=== PATIENT | female | born 1945 | race Caucasian/White ===

== ENCOUNTER 2017-01-31 17:02 | Inpatient (IN) | payer MEDICARE, MEDICAID ==
[~2017-01-31] VITALS: Ht 160 cm; Wt 56.7 kg
[2017-01-31] MEDS ORDERED: ACETAMINOPHEN ES 500 MG TABLET ONE (17:27)
[2017-01-31] MEDS ORDERED: IV NS 0.9% 2,000 ML ONE (17:27)
[2017-01-31] MEDS ORDERED: IV SET PRIMARY PUMP SET 1 EA INFUS.SET MC ONE ×3 (17:27→22:23)
[2017-01-31] MEDS ORDERED: IV NS 0.9% 1,000 ML BAG IV ONE ×2 (17:30)
[2017-01-31] MEDS ORDERED: ACETAMINOPHEN ES 500 MG TABLET PO ONE (17:30)
[2017-01-31] MEDS ORDERED: LEVOFLOXACIN 750 MG /D5W 150ML PIGGYBACK IV ONE (17:30)
[2017-01-31] MEDS ORDERED: PIPERACILLIN /TAZOBACTAM 3.375 G in IV D5W 50 ML IV ONE (17:30)
[2017-01-31 17:44] LABS: BASOPHILS # (AUTO) 0.6 /CMM (0.0-0.2); BASOPHILS % (AUTO) 3.4 % (0.0-2.0); DIFF TOTAL % 100 %; EOSINOPHILS # (AUTO) 0.1 /CMM (0.0-0.7); EOSINOPHILS % (AUTO) 0.7 % (0.0-6.0); HEMATOCRIT 35 % (33-45); HEMOGLOBIN 11.8 g/dL (11.5-14.8); LYMPHOCYTES # (AUTO) 2.1 /CMM (0.8-4.8); LYMPHOCYTES % (AUTO) 12.8 % (20.0-44.0); MEAN CORPUSCULAR HEMOGLOBIN 30 PG (26.0-33.0); MEAN CORPUSCULAR HGB CONC 33 g/dl (31.0-36.0); MEAN CORPUSCULAR VOLUME 89 fL (82-100); MONOCYTES # (AUTO) 1.1 /CMM (0.1-1.30); MONOCYTES % (AUTO) 6.8 % (2.0-12.0); NEUTROPHILS # (AUTO) 12.8 /CMM (1.8-8.9); NEUTROPHILS % (AUTO) 76.3 % (43.0-81.0); PLATELET COUNT (AUTO) 257 /CMM (150-450); RED BLOOD CELL COUNT(AUTO) 3.97 MIL/uL (4.0-5.2); WHITE BLOOD COUNT (AUTO) 16.7 K/uL (4.3-11.0)
[2017-01-31 17:54] LABS: CALCIUM, SERUM 9.3 mg/dL (8.5-10.1); CREATININE 1.5 mg/dL (0.6-1.3); POTASSIUM 4.2 mmol/L (3.5-5.1)
[2017-01-31 17:59] LABS: ALBUMIN 3.2 g/dL (3.4-5.0); BILIRUBIN,DIRECT 0.2 mg/dL (0.0-0.2); BILIRUBIN,TOTAL 0.7 mg/dL (0.2-1.0); INDIRECT BILIRUBIN 0.5 mg/dL (0.0-1.1); TOTAL PROTEIN, SERUM 8.1 g/dL (6.4-8.2)
[2017-01-31] MEDS ORDERED: LEVOFLOXACIN 750 MG /D5W 150ML 150 ML IV ONE (17:59)
[2017-01-31] MEDS ORDERED: METRONIDAZOLE 500MG/ NS 100ML 100 ML IV ONE ×2 (18:00)
[2017-01-31 18:01] LABS: TROPONIN I 0.024 ng/mL (0.00-0.056)
[2017-01-31 18:02] LABS: INR 1.07 (0.87-1.13); PROTHROMBIN TIME 11.2 SECS (9.5-12.7)
[2017-01-31 18:03] LABS: ADD UA MICROSCOPIC YES; KETONES,URINE Negative (NEGATIVE); LEUKOCYTE ESTERASE ,URINE Large (NEGATIVE); PH,URINE 5.5 (5.0-8.0)
[2017-01-31 18:11] LABS: LACTIC ACID 1.2 mmol/L (0.4-2.0)
[2017-01-31] MEDS ORDERED: CYAN500T4 PO (18:14)
[2017-01-31] MEDS ORDERED: METO25TA20 PO (18:14)
[2017-01-31] MEDS ORDERED: CARB-93 PO (18:14)
[2017-01-31] MEDS ORDERED: NA P133E RC (18:14)
[2017-01-31] MEDS ORDERED: LEVO100T9 PO (18:14)
[2017-01-31] MEDS ORDERED: DEXT15DR6 EACHEYE (18:14)
[2017-01-31] MEDS ORDERED: FLUT1DIS3 IH (18:14)
[2017-01-31] MEDS ORDERED: DOCU250C75 PO (18:14)
[2017-01-31] MEDS ORDERED: MAGN400O6 PO (18:14)
[2017-01-31] MEDS ORDERED: MEMA5TAB PO (18:14)
[2017-01-31] MEDS ORDERED: ASPI81TA2 PO (18:14)
[2017-01-31] MEDS ORDERED: LANS30CA10 PO (18:14)
[2017-01-31] MEDS ORDERED: MULT-659 PO (18:14)
[2017-01-31] MEDS ORDERED: BISA10SU8 RC (18:14)
[2017-01-31] MEDS ORDERED: FOLI1TAB16 PO (18:14)
[2017-01-31] MEDS ORDERED: ESCI10TA PO (18:14)
[2017-01-31] MEDS ORDERED: LISI-607 PO (18:14)
[2017-01-31] MEDS ORDERED: ACET-868 PO (18:14)
[2017-01-31] MEDS ORDERED: LORA0.5T PO (18:14)
[2017-01-31 18:17] LABS: ADD URINE CULTURE YES; RBC,URINE 0-2 /HPF (0-2); WBC,URINE 21-50 /HPF (0-3)
[2017-01-31] MEDS ORDERED: NA PHOS,M-B/NA PHOS,DI-BA 1 EA ENEMA RC PRN (20:00)
[2017-01-31] MEDS ORDERED: ACETAMINOPHEN 325 MG TABLET PO PRN ×2 (20:00)
[2017-01-31] MEDS ORDERED: HYDROCODONE/APAP 5/325MG 1 EACH TABLET PO PRN (20:00)
[2017-01-31] MEDS ORDERED: Z GUARD REMEDY 2 OZ OINT TP PRN (20:00)
[2017-01-31] MEDS ORDERED: HYDROCODONE/APAP 10/325MG 1 EA TABLET PO PRN (20:00)
[2017-01-31] MEDS ORDERED: BISACODYL SUPP (10 MG) 10 MG/SUPP.RECT SUPP.RECT RC PRN (20:00)
[2017-01-31] MEDS ORDERED: LORAZEPAM 0.5 MG TABLET PO PRN (20:00)
[2017-01-31] MEDS ORDERED: ONDANSETRON HCL/PF 4 MG/2 ML VIAL IVP PRN (20:00)
[2017-01-31] MEDS ORDERED: MORPHINE SULFATE INJ 2 MG/ML DISP.SYRIN IV PRN (20:00)
[2017-01-31] MEDS ORDERED: MAGNESIUM HYDROXIDE 30 ML UDC PO PRN ×2 (20:00)
[2017-01-31] MEDS ORDERED: MAG HYDROX/AL HYDROX/SIMETH 30 ML UDC PO PRN (20:00)
[2017-01-31] MEDS ORDERED: ZOLPIDEM TARTRATE 5 MG TABLET PO PRN (20:00)
[2017-01-31 21:00] VITALS: BP 113/76
[2017-01-31] MEDS ORDERED: SECONDARY IV SET 1 EA INFUS.SET MC ONE (22:23)
[2017-01-31] MEDS: IV NS 0.9% 1,000 ML IV PRN (22:36)
[2017-01-31] MEDS: ENOXAPARIN SODIUM 40 MG/0.4 ML DISP.SYRIN SQ SCH (22:38)
[2017-01-31] MEDS: CEFTRIAXONE 1 G in IV D5W 50 ML IV SCH (22:39)
[2017-02-01 06:25] LABS: BASOPHILS % (AUTO) 0.2 % (0.0-2.0); DIFF TOTAL % 100 %; EOSINOPHILS # (AUTO) 0.3 /CMM (0.0-0.7); EOSINOPHILS % (AUTO) 1.8 % (0.0-6.0); HEMATOCRIT 33 % (33-45); HEMOGLOBIN 10.7 g/dL (11.5-14.8); LYMPHOCYTES # (AUTO) 1.2 /CMM (0.8-4.8); LYMPHOCYTES % (AUTO) 8.8 % (20.0-44.0); MEAN CORPUSCULAR HEMOGLOBIN 30 PG (26.0-33.0); MEAN CORPUSCULAR HGB CONC 33 g/dl (31.0-36.0); MEAN CORPUSCULAR VOLUME 91 fL (82-100); MONOCYTES # (AUTO) 0.8 /CMM (0.1-1.30); MONOCYTES % (AUTO) 5.6 % (2.0-12.0); NEUTROPHILS # (AUTO) 11.9 /CMM (1.8-8.9); NEUTROPHILS % (AUTO) 83.6 % (43.0-81.0); PLATELET COUNT (AUTO) 243 /CMM (150-450); RED BLOOD CELL COUNT(AUTO) 3.63 MIL/uL (4.0-5.2); WHITE BLOOD COUNT (AUTO) 14.2 K/uL (4.3-11.0)
[2017-02-01 06:44] LABS: THYROID STIMULATING HORMONE 47.359 uIU/mL (0.358-3.74)
[2017-02-01 06:45] LABS: CREATININE 1.3 mg/dL (0.6-1.3); PHOSPHORUS 2.8 mg/dL (2.5-4.9); POTASSIUM 4.2 mmol/L (3.5-5.1)
[2017-02-01] MEDS ORDERED: PANTOPRAZOLE 40 MG TABLET.DR PO SCH (07:30)
[2017-02-01 08:00] VITALS: BP 154/62
[2017-02-01] MEDS: ESCITALOPRAM OXALATE (10 MG) 10 MG TABLET PO SCH (09:02)
[2017-02-01] MEDS: METOPROLOL TARTRATE 25 MG TABLET PO SCH ×2 (09:03→17:26)
[2017-02-01] MEDS: DOCUSATE SODIUM 250 MG CAPSULE PO SCH (09:03)
[2017-02-01] MEDS: ASPIRIN 81 MG TAB.CHEW PO SCH (09:04)
[2017-02-01] MEDS: CARBIDOPA/LEVODOPA 25/100 MG 1 UDTAB PO SCH ×3 (09:04→17:27)
[2017-02-01] MEDS: LISINOPRIL (5MG) 5 MG TABLET PO SCH (09:04)
[2017-02-01] MEDS: PANTOPRAZOLE 40 MG TABLET.DR PO SCH (09:04)
[2017-02-01] MEDS: LEVOTHYROXINE SODIUM 100 MCG TABLET PO SCH (09:04)
[2017-02-01] MEDS: CYANOCOBALAMIN 500 MCG TABLET PO SCH (09:05)
[2017-02-01] MEDS: MEMANTINE HCL 5 MG TABLET PO SCH ×2 (09:05→17:38)
[2017-02-01] MEDS: FOLIC ACID 1 MG TABLET PO SCH (09:05)
[2017-02-01] MEDS: FLUTICASONE/SALMETEROL DISKUS IH SCH ×2 (09:08→17:29)
[2017-02-01] MEDS: IV NS 0.9% 1,000 ML IV PRN (12:46)
[2017-02-01] MEDS ORDERED: BISACODYL SUPP (10 MG) 10 MG/SUPP.RECT SUPP.RECT RC PRN (14:30)
[2017-02-01] MEDS ORDERED: LACTULOSE 10 G/15 ML UDC (PYXIS) PO PRN (14:30)
[2017-02-01 16:21] VITALS: BP 154/81
[2017-02-01 20:26] VITALS: BP 160/79
[2017-02-01] MEDS: CEFTRIAXONE 1 G in IV D5W 50 ML IV SCH (21:37)
[2017-02-01] MEDS: ENOXAPARIN SODIUM 40 MG/0.4 ML DISP.SYRIN SQ SCH (21:38)
[2017-02-02 08:00] VITALS: BP_SYST 138; BP_SYST 149; BP_DIAS 72; BP_DIAS 75
[2017-02-02] MEDS: FOLIC ACID 1 MG TABLET PO SCH (09:33)
[2017-02-02] MEDS: ASPIRIN 81 MG TAB.CHEW PO SCH (09:33)
[2017-02-02] MEDS: DOCUSATE SODIUM 250 MG CAPSULE PO SCH (09:34)
[2017-02-02] MEDS: LEVOTHYROXINE SODIUM 100 MCG TABLET PO SCH (09:34)
[2017-02-02] MEDS: METOPROLOL TARTRATE 25 MG TABLET PO SCH ×2 (09:34→16:47)
[2017-02-02] MEDS: CARBIDOPA/LEVODOPA 25/100 MG 1 UDTAB PO SCH ×3 (09:34→16:47)
[2017-02-02] MEDS: PANTOPRAZOLE 40 MG TABLET.DR PO SCH (09:34)
[2017-02-02] MEDS: LISINOPRIL (5MG) 5 MG TABLET PO SCH (09:35)
[2017-02-02] MEDS: MEMANTINE HCL 5 MG TABLET PO SCH ×2 (09:35→16:47)
[2017-02-02] MEDS: CYANOCOBALAMIN 500 MCG TABLET PO SCH (09:35)
[2017-02-02] MEDS: ESCITALOPRAM OXALATE (10 MG) 10 MG TABLET PO SCH (09:36)
[2017-02-02] MEDS: FLUTICASONE/SALMETEROL DISKUS IH SCH ×2 (09:45→16:48)
[2017-02-02 16:00] VITALS: BP 133/71
[2017-02-02] MEDS: IV NS 0.9% 1,000 ML IV PRN (16:45)
[2017-02-02 20:00] VITALS: BP 165/84
[2017-02-02] MEDS: ENOXAPARIN SODIUM 40 MG/0.4 ML DISP.SYRIN SQ SCH (21:29)
[2017-02-02] MEDS: CEFTRIAXONE 1 G in IV D5W 50 ML IV SCH (22:27)
[2017-02-03] MEDS: IV NS 0.9% 1,000 ML IV PRN (05:13)
[2017-02-03 05:22] LABS: BASOPHILS % (AUTO) 0.4 % (0.0-2.0); DIFF TOTAL % 100 %; EOSINOPHILS # (AUTO) 0.4 /CMM (0.0-0.7); EOSINOPHILS % (AUTO) 3.8 % (0.0-6.0); HEMATOCRIT 32 % (33-45); HEMOGLOBIN 10.3 g/dL (11.5-14.8); LYMPHOCYTES # (AUTO) 1.2 /CMM (0.8-4.8); LYMPHOCYTES % (AUTO) 12.3 % (20.0-44.0); MEAN CORPUSCULAR HEMOGLOBIN 29 PG (26.0-33.0); MEAN CORPUSCULAR HGB CONC 32 g/dl (31.0-36.0); MEAN CORPUSCULAR VOLUME 90 fL (82-100); MONOCYTES # (AUTO) 0.9 /CMM (0.1-1.30); NEUTROPHILS # (AUTO) 6.9 /CMM (1.8-8.9); NEUTROPHILS % (AUTO) 73.5 % (43.0-81.0); PLATELET COUNT (AUTO) 282 /CMM (150-450); RED BLOOD CELL COUNT(AUTO) 3.55 MIL/uL (4.0-5.2); WHITE BLOOD COUNT (AUTO) 9.4 K/uL (4.3-11.0)
[2017-02-03 05:53] LABS: CALCIUM, SERUM 8.4 mg/dL (8.5-10.1); POTASSIUM 3.6 mmol/L (3.5-5.1)
[2017-02-03] MEDS ORDERED: LEVOTHYROXINE SODIUM 125 MCG TABLET PO SCH (07:30)
[2017-02-03 08:00] VITALS: BP 159/67
[2017-02-03] MEDS: MEMANTINE HCL 5 MG TABLET PO SCH ×2 (08:14→16:37)
[2017-02-03] MEDS: FOLIC ACID 1 MG TABLET PO SCH (08:14)
[2017-02-03] MEDS: DOCUSATE SODIUM 250 MG CAPSULE PO SCH (08:14)
[2017-02-03] MEDS: CARBIDOPA/LEVODOPA 25/100 MG 1 UDTAB PO SCH ×3 (08:14→16:37)
[2017-02-03] MEDS: ASPIRIN 81 MG TAB.CHEW PO SCH (08:15)
[2017-02-03] MEDS: LISINOPRIL (5MG) 5 MG TABLET PO SCH (08:15)
[2017-02-03] MEDS: CYANOCOBALAMIN 500 MCG TABLET PO SCH (08:16)
[2017-02-03] MEDS: FLUTICASONE/SALMETEROL DISKUS IH SCH ×2 (08:16→16:36)
[2017-02-03] MEDS: PANTOPRAZOLE 40 MG TABLET.DR PO SCH (08:16)
[2017-02-03] MEDS: ESCITALOPRAM OXALATE (10 MG) 10 MG TABLET PO SCH (08:16)
[2017-02-03] MEDS: METOPROLOL TARTRATE 25 MG TABLET PO SCH ×2 (08:16→16:37)
[2017-02-03] MEDS ORDERED: Sodium Phosphate 15 MMOL in IV D5W 250 ML IV ONE (11:30)
[2017-02-03] MEDS ORDERED: K PHOS NEUTRAL 250 MG TABLET PO ONE (11:30)
[2017-02-03] MEDS ORDERED: Magnesium 1GM/D5W 100ML PREMIX 100 ML IV SCH (11:54)
[2017-02-03] MEDS ORDERED: SULF1TAB48 PO (12:46)
[2017-02-03] MEDS ORDERED: IV SET PRIMARY PUMP SET 1 EA INFUS.SET MC ONE (13:13)
[2017-02-03] MEDS: Magnesium 1GM/D5W 100ML PREMIX 100 ML IV SCH ×2 (13:34→14:30)
[2017-02-03 16:00] VITALS: BP 159/73
[2017-02-03 16:03] VITALS: BP 159/73
[2017-02-03 16:37] VITALS: BP 159/73
== END 2017-02-03 18:35 | DRG 871 ==
LOC: ER 17:05 → MEDSG2 20:29
DX: A41.9 Sepsis, unspecified organism (principal); N17.0 Acute kidney failure with tubular necrosis; N39.0 Urinary tract infection, site not specified; G20 Parkinson's disease; F32.9 Major depressive disorder, single episode, unspecified; E03.9 Hypothyroidism, unspecified; F41.9 Anxiety disorder, unspecified; Z87.891 Personal history of nicotine dependence; I10 Essential (primary) hypertension; R13.10 Dysphagia, unspecified; K21.9 Gastro-esophageal reflux disease without esophagitis; K56.41 Fecal impaction; M81.0 Age-related osteoporosis without current pathological fracture; I25.10 Atherosclerotic heart disease of native coronary artery without angina pectoris; I70.0 Atherosclerosis of aorta; K57.30 Diverticulosis of large intestine without perforation or abscess without bleeding; K80.20 Calculus of gallbladder without cholecystitis without obstruction; M43.10 Spondylolisthesis, site unspecified; M46.90 Unspecified inflammatory spondylopathy, site unspecified; M48.06 Spinal stenosis, lumbar region; N18.9 Chronic kidney disease, unspecified; N32.3 Diverticulum of bladder
CPT/HCPCS: 36415; 71010-TC; 80048-TC; 80061-TC; 80076-TC; 81000-TC; 83605-TC; 83735-TC; 84100-TC; 84443-TC; 84484-TC; 85025-TC; 85730-TC; 86850-TC; 87040-TC; 87081-TC; 87086-TC; 87400; A4606; A9563; J0696; J1650; J1956; J3475; J3490; J7030; J7060; Z7610